=== PATIENT | female | born 1995 | race Caucasian/White ===

== ENCOUNTER → 2016-12-08 | Outpatient (CLI) | payer BC ==
--- NOTE | ~2016-12-08 | ECHO ---
Transthoracic Echocardiography Report (TTE) Demographics Patient Name MERY GALICIA Date of Study 12/08/2016 Patient Number [id number] Visit Number [id number] Date of 1995 Room Number Gender Female Number Age 21 year(s) Referring Suzanne Moura Cigar Patcher Gabriela Knight RDCS, Physician RVT, RDMS, INTERLOCKER MAINTAINER Physician Interpreting Suzanne Moura MD Optical Effects Layout Person Physician Supervising Ordering Suzanne Moura MD, MD/MLP Physician Nurse Stress Creative Art Director Conclusions Contractility Score Summary Normal Left Ventricular contractility was noted. Summary Normal cardiac chamber sizes. No significant valvular abnormalities. Procedure Type of Study TTE procedure:2D Echocardiogram, M-Mode, Doppler , Color Doppler. Procedure Date Date: 12/08/2016 Start: 12:17 PM Study Location: Echo Lab Technical Quality: Fair due to body habitus. Indications:Dyspnea/SOB. Appropriate Use Criteria: 9 Patient Status: Routine HR: 55 bpm BP: 130/80 mmHg M-Mode/2D Measurements LV Diastolic Dimension: 5.08 cm LV Systolic Dimension: 2.65 cm LV Septum Diastolic: 1.2 cm LV PW Diastolic: 1.2 cm AO Root Dimension: 3 cm Cardiac Output: 4.01 l/min AV Cusp Separation: 1.9 cm RV Diastolic Dimension: 3.46 cm LA volume: 51 ml LVOT: 1.8 cm RV Base: 3 cm LVOT VTI: 28.7 cm RV Mid: 2.4 cm LV Stroke volume: 73 ml Doppler Measurements AV Peak Velocity: 1.34 m/s MV Peak E-Wave: 1.35 m/s AV Peak Gradient: 7.18 mmHg MV Peak A-Wave: 0.47 m/s AV Mean Gradient: 3 mmHg MV E/A Ratio: 2.85 LVOT Peak Velocity: 1.14 m/s MV P1/2t: 64 msec TR Gradient:20.61 mmHg PV Peak Velocity: 0.89 m/s Estimated RAP:8 mmHg PV Peak Gradient: 3.18 mmHg Estimated RVSP: 29 mmHg Estimated PASP: 28.61 mmHg E' Septal Velocity: 0.1 m/s A' Septal Velocity: 0.05 m/s E' Lateral Velocity: 0.19 m/s A' Lateral Velocity: 0.06 m/s Findings Left Ventricle Normal left ventricle size and function. Right Ventricle Normal right ventricle structure and function. Left Atrium Normal left atrial size. Right Atrium Normal right atrial size. IVC imaging is consistent with normal RA pressures. Mitral Valve Normal mitral valve structure and function. Trivial mitral regurgitation by color Doppler. Aortic Valve Normal aortic valve structure and function. Tricuspid Valve Normal tricuspid valve structure and function. Trivial tricuspid regurgitation by color Doppler. Pulmonic Valve Normal pulmonic valve structure and function. Pericardial Effusion No evidence of pericardial effusion. Miscellaneous Visualized portions of the aortic root and ascending aorta appear normal in size. Pleural Effusion No evidence of pleural effusion. Contractility Score LV regional wall motion:(0-Non visualized 1-Normal 2-Hypokinesis 3-Akinesis 4-Dyskinesis 5-Aneurysm) Signature dtt: Zeny Palacios dtd: 12/08/16 1217 Physician Self Edit
== END | disposition disaster alternative care site (69) ==
LOC: GCAR 12-07 14:00
DX: R06.02 Shortness of breath (principal)

== ENCOUNTER → 2016-12-14 | Outpatient (CLI) | payer BC ==
--- NOTE | ~2016-12-14 | PUL ---
PATIENT'S NAME: MERY GALICIA [facility] AGE: 21 Y [address] ROOM: [place] [address] LOCATION: [facility] ADMIT DATE: 12/14/2016 Pulmonary DISCHARGE DATE: FAMILY PHYSICIAN: Nasra Montelongo ATTENDING PHYSICIAN: Zeny Palacios NAME OF PROCEDURE: Pulmonary Function Test DATE OF PROCEDURE: December 14, 2016 TECH: DEEPAK Castro REASON FOR EXAM: Shortness of breath PROCEDURES PERFORMED: Spirometry with bronchodilator assessment. Measurement of maximum voluntary ventilation. Measurement of lung volumes. Measurement of diffusion capacity. RESULTS: Spirometry showed pre bronchodilator FVC was 4.41 liters or 113% of predicted, post bronchodilator FVC was 4.59 liters or 118% of predicted. Pre bronchodilator FEV1 was 3.38 liters or 100% of predicted, post bronchodilator FEV1 was 3.79 liters or 112% of predicted. FEV1/FVC was 77% or 89% of predicted. AEI73-06% was 2.84 liters/second, or 76% of predicted. Maximum voluntary ventilation was 114 liters/minute, 94% of predicted. This data did improve following inhaled bronchodilator. Lung volumes showed total lung capacity was 5.57 liter, 103% of predicted. Functional residual capacity, was 2.19 liters, 100% of predicted. Residual volume was 1.16 liters, 74% of predicted. Diffusing capacity not adjusted for hemoglobin was 85%. The single breath alveolar volume was 5 liters which is a good estimate of total lung capacity. The flow volume loop pattern was normal. REFERRING PHYSICIAN: This data and the corresponding flow volume curves are most compatible with normal pulmonary function. There is evidence of bronchodilator reversibility, normal lung volumes, and no gas transfer impairment. MD AMAURY ROLAND/logan PATIENT'S NAME: MERY GALICIA [facility] AGE: 21 Y [address] ROOM: [place] [address] LOCATION: [facility] ADMIT DATE: 12/14/2016 Pulmonary DISCHARGE DATE: FAMILY PHYSICIAN: Nasra Montelongo ATTENDING PHYSICIAN: Zeny Palacios /[id number] dtt: 12/15/16 1644 , GLENNY MCCOLLUM dtd: 12/15/16 1541
== END | disposition disaster alternative care site (69) ==
LOC: GRTH 13:53
DX: R06.02 Shortness of breath (principal)

== ENCOUNTER → 2016-12-16 | Outpatient (CLI) | payer BC ==
--- NOTE | ~2016-12-16 | ECHO ---
Cardiac Stress Test Demographics Patient Name MERY GALICIA Date of Study 12/16/2016 Patient Number [id number] Visit Number [id number] Date of 1995 Room Number Accession Number [id number] Gender Female Age 21 year(s) Referring Reginald Naqvi MD Interpreting Suzanne Moura Physician Misha Pascual Physician PAC Physician Ordering Physician Suzanne Moura Commercial Lines Manager Supervising Stress Patient Scheduling Coordinator Matt Love RVT MD/[place]ON[place] Nurse Deondre Ordonez RN The procedure was explained in detail to the patient. Risks, complications and alternative treatments were reviewed. Written consent was obtained. Medications reviewed with patient prior to procedure. Procedure Type of Study Cardiac Stress Test:TREADMILL STRESS TEST. Procedure Date Date: 12/16/2016 Start: 12:00 AM Indications:Irregular Heartbeat. Conclusions Summary Duration: 9:40 mins. Achieved: 83% MPHR. METs: 11.1 DP: 22 K. No chest pain. Reason for termination: Fatigue and SOB. EKG: No ischemia. No arrythmias. DTS: 8 (Low risk). Risk Factors - The patient's risk factor(s) include: obesity. Stress Protocol Stress Predicted HR: 198 bpm Signature dtt: Zeny Palacios dtd: 12/16/16 0000 Physician Self Edit
== END | disposition disaster alternative care site (69) ==
LOC: GCAR 12:34
DX: R06.02 Shortness of breath (principal)